=== PATIENT | female | born 1965 | race Caucasian/White ===

== ENCOUNTER → 2021-03-31 | Outpatient (CLI) | payer OTHER ==
--- NOTE | 2021-03-31 10:51 | MR ---
EXAMINATION TYPE: MR neck wo/w con DATE OF EXAM: 03/31/2021 COMPARISON: Outside neck CT February 27, 2021 HISTORY: Palpable mass left parotid. CONTRAST: Standard multiplanar, multisequence MRI departmental protocol images were obtained without contrast a nd with 9 mL intravenous Gadavist gadolinium contrast. 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 On CT this is less well seen due to st reak artifact from cavitary fillings near this level. No additional concerning mass seen in either parotid gland. Submandibular glands symmetric and felt w ithin normal limits. No abnormal greater than 1 cm neck adenopathy clearly seen. Visualized osseous structures are intact. Thyroid gland appears within normal limits. IMPRESSION: There is 2.2 cm homogeneous enhancing oval shaped well-circumscribed mass anterior inferi or left parotid gland correlating with palpable abnormality and recent biopsy proven pleomorphic laila lul.
== END | disposition home or self-care (01) ==
LOC: RADMRIMAIN 08:41
PROVIDERS: ATTEND Otolaryngology
DX: D11.0 Benign neoplasm of parotid gland (principal)
CPT/HCPCS: 70543; A9585